=== PATIENT | male | born 1990 | race Caucasian/White ===

== ENCOUNTER → 2022-01-16 07:08 | Outpatient (CLI) | payer OTHER, SELFPAY ==
[2022-01-16 15:38] LABS: Basophils # 0.1 K/mm3 (0-0.2); Basophils % 1.1 % (0.1-2.0); Eosinophils # 0.1 K/mm3 (0.0-0.4); Eosinophils % 1.3 % (0.1-12.0); Hemoglobin 12.2 g/dL (14.1-18.0); Lymphocytes # 2.3 K/mm3 (0.7-4.5); Lymphocytes % 26.3 % (10-50); Mean Corpuscular HGB Conc 32.9 g/dL (31.8-35.4); Mean Corpuscular Hemoglobin 29.3 pg (27.0-31.2); Mean Platelet Volume 8.7 fl (7.4-10.4); Monocytes # 0.5 K/mm3 (0.1-1.0); Neutrophils # 5.6 K/mm3 (1.8-7.8); Neutrophils % 65.2 % (37.0-80.0); Platelet Count 334 K/mm3 (142-424); Red Blood Count 4.16 M/mm3 (4.60-6.20); Red Cell Distribution Width 13.3 % (11.5-17.5); White Blood Count 8.6 K/mm3 (4.8-10.8)
[2022-01-16 15:42] LABS: Alanine Aminotransferase 30 U/L (12-78); Albumin Level 4.1 g/dl (3.5-5.0); Albumin/Globulin Ratio 1.6 (1.1-1.8); Alkaline Phosphatase 114 U/L (38-126); Anion Gap 9.4 mEq/L (5-15); Aspartate Amino Transferase 22 U/L (17-59); Bilirubin,Total 1.2 mg/dl (0.2-1.3); Blood Urea Nitrogen 21 mg/dl (9-20); Calcium 9.3 mg/dl (8.4-10.2); Carbon Dioxide 30 mmol/L (22.0-30.0); Chloride 99 mmol/L (98-107); Chol/HDL Ratio 5.4 (1-3.5); Cholesterol 207 mg/dl (140-200); Estimated Glomerular Filt Rate 87 ml/min (>60); GFR (African American) 105 ML/MIN (>60); Globulin 2.5 g/dL (1.3-3.2); HDL Cholesterol 38 mg/dl (40-60); Potassium 4.4 mmoL/L (3.5-5.1); Sodium 134 mmol/L (136-145); Total Protein,Serum 6.6 g/dl (6.3-8.2); Triglycerides 276 mg/dl (30-150); VLDL Cholesterol 55 mg/dL (0-40)
[2022-01-16 15:53] LABS: Glucose 459 mg/dl (74-100)
[2022-01-16 15:59] LABS: 25-OH Vitamin D, Total 20.2 ng/mL (30-100)
[2022-01-16 16:15] LABS: Thyroid Stimulating Hormone 1.49 uIU/mL (0.465-4.68)
[2022-01-16 16:34] LABS: Vitamin B12 547 pg/mL (239-931)
[2022-01-16 19:01] LABS: Hemoglobin A1C > 14.0 % (4.0-6.0)
[2022-01-18 08:34] LABS: Direct LDL Cholesterol 122 mg/dL (100-129)
[2022-01-18 12:11] LABS: C-Peptide 2.1 ng/mL (1.1-4.4)
== END ==
PROVIDERS: PCP Physician Assistant; Visit Provider Physician Assistant
DX: E11.9 Type 2 diabetes mellitus without complications (principal); E55.9 Vitamin D deficiency, unspecified; Z79.4 Long term (current) use of insulin
CPT/HCPCS: 80053; 80061; 82043; 82306; 82607; 83036; 84443; 84681; 85025

== ENCOUNTER → 2022-08-02 23:30 | Outpatient (CLI) | payer OTHER, SELFPAY ==
[2022-08-02 19:09] LABS: Basophils # 0.1 K/mm3 (0-0.2); Basophils % 1.2 % (0.1-2.0); Eosinophils # 0.2 K/mm3 (0.0-0.4); Eosinophils % 2.2 % (0.1-12.0); Hematocrit 34.7 % (42.0-52.0); Hemoglobin 11.5 g/dL (14.1-18.0); Lymphocytes # 2.8 K/mm3 (0.7-4.5); Lymphocytes % 32.8 % (10-50); Mean Corpuscular HGB Conc 33.1 g/dL (31.8-35.4); Mean Corpuscular Volume 87.6 fl (80-94); Mean Platelet Volume 8.2 fl (7.4-10.4); Monocytes # 0.5 K/mm3 (0.1-1.0); Monocytes % 5.9 % (1.7-9.3); Neutrophils # 4.9 K/mm3 (1.8-7.8); Neutrophils % 57.9 % (37.0-80.0); Platelet Count 354 K/mm3 (142-424); Red Blood Count 3.96 M/mm3 (4.60-6.20); Red Cell Distribution Width 13.5 % (11.5-17.5); White Blood Count 8.4 K/mm3 (4.8-10.8)
[2022-08-02 19:40] LABS: Alanine Aminotransferase 38 U/L (12-78); Albumin Level 4.5 g/dl (3.5-5.0); Albumin/Globulin Ratio 1.7 (1.1-1.8); Alkaline Phosphatase 113 U/L (38-126); Anion Gap 6.3 mEq/L (5-15); Aspartate Amino Transferase 38 U/L (17-59); Bilirubin,Total 1.3 mg/dl (0.2-1.3); Blood Urea Nitrogen 24 mg/dl (9-20); Calcium 9.5 mg/dl (8.4-10.2); Carbon Dioxide 30 mmol/L (22.0-30.0); Chloride 104 mmol/L (98-107); Chol/HDL Ratio 4.4 (1-3.5); Cholesterol 166 mg/dl (140-200); Estimated Glomerular Filt Rate 78 ml/min (>60); GFR (African American) 94 ML/MIN (>60); Globulin 2.7 g/dL (1.3-3.2); Glucose 265 mg/dl (74-100); HDL Cholesterol 38 mg/dl (40-60); Potassium 4.3 mmoL/L (3.5-5.1); Sodium 136 mmol/L (136-145); Total Protein,Serum 7.2 g/dl (6.3-8.2); Triglycerides 280 mg/dl (30-150); VLDL Cholesterol 56 mg/dL (0-40)
[2022-08-02 19:51] LABS: Direct LDL Cholesterol 66.59 mg/dL (100-129)
[2022-08-02 19:58] LABS: 25-OH Vitamin D, Total 32.4 ng/mL (30-100)
[2022-08-02 20:11] LABS: Thyroid Stimulating Hormone 1.57 uIU/mL (0.465-4.68)
[2022-08-02 20:20] LABS: Hemoglobin A1C 9.7 % (4.0-6.0)
== END ==
PROVIDERS: PCP Physician Assistant; Visit Provider Physician Assistant
DX: E11.9 Type 2 diabetes mellitus without complications (principal); Z79.4 Long term (current) use of insulin; Z79.899 Other long term (current) drug therapy
CPT/HCPCS: 80053; 80061; 82306; 83036; 84443; 85025

== ENCOUNTER → 2022-08-03 10:51 | Outpatient (CLI) | payer OTHER, SELFPAY ==
[2022-08-03 13:58] LABS: Iron 82 ug/dL (49-181)
[2022-08-03 14:07] LABS: Total Iron Binding Capacity 330 ug/dL (261-462)
[2022-08-03 14:34] LABS: Ferritin 104 ng/ml (17.9-464)
== END ==
PROVIDERS: PCP Physician Assistant; Visit Provider Physician Assistant
DX: D64.9 Anemia, unspecified (principal)
CPT/HCPCS: 82728; 83540; 83550

== ENCOUNTER 2022-11-09 11:53 | Day surgery (SDC) | payer OTHER, SELFPAY ==
[2022-10-25 14:11] VITALS: BMI 27.3
[2022-11-09] VITALS (7 sets, daily range): BP systolic 116–162; BP diastolic 72–91; PULSE 103–122; RESP 16–19; TEMP 36.1–36.3; O2SAT 97–100
[2022-11-09 12:30] LABS: POC Glucose,Bedside 212 (70-110)
--- NOTE | 2022-11-09 12:50 | P.PN_ITS ---
[facility] Disclaimer: The information contained in this section may have been updated after the patient was seen, as this information can be updated by other users. Medical History Diabetes Retinopathy due to secondary diabetes mellitus Surgical History H/O colonoscopy S/P LASIK surgery of both eyes Family History Mother Diabetes Brother Diabetes Social History (Updated 11/09/22 @ 12:17 by Gretta Rossi RN) Smoking Status: Current every day smoker tobacco type: e-cigarettes alcohol intake: never substance use type: marijuana current occupational status: unemployed and disabled Travel in the last 8 weeks: None household members: none housing: house lives independently: Yes marital status: single education level: high school service: No caffeine: Yes special markell needs: No do you feel safe at home: Yes victim of physical abuse: No victim of emotional abuse: No victim of sexual abuse: No would you like helpful sources: No [facility] Anesthesia Checklist Patient Identification Patient Identification: Verbal (Name & ) Structural Data Admitted From: Home Planned Operative Procedure/s: egd Consent for Planned Operative Procedure(s) Verified: Yes Airway Assessment C-Spine Mobility Assessed: Yes TMJ Mobility Assessed: Yes Dentition: Poor Dentition Neurological Assessment Level of Consciousness: Awake, Alert and Appropriate Anesthesia Plan Anesthesia Risk discussed: Yes Anesthesia Plan: Verified ASA Class: II Anesthesia Type: MAC
--- NOTE | 2022-11-09 13:18 | HMH.SCOPE ---
Procedure: Date: 11/09/22 Patient Date of :: 1990 Procedure Performed:: EGD & biopsies Indications:: GERD, abdominal pain Performing Provider:: Tangela Sandhu MD Referring Provider:: LARS Atkins Sedation:: Propofol Procedure:: The gastroscope was gently passed through the incisoral orifice into the oral cavity and under direct visualization the esophagus was intubated. The endoscope was passed down the esophagus, through the stomach, and into the duodenum. Color, texture, mucosa, and anatomy of the esophagus, stomach, and duodenum were carefully examined with the scope. Findings:: Oropharynx: normal Esophagus: Grade B distal ulcerative esophagitis noted, biopsied, no hiatus hernia EG Junction: intact at 40 cm Cardia: normal Fundus: normal Body: normal Antrum: normal Duodenal bulb: normal Duodenum (second and third portion): normal Impression: Grade B ulcerative esophagitis Specimens:: Esophagus Recommendations:: PPI therapy and stop cannabis use Complications:: None Estimated blood obtained (mL): 0
== END 2022-11-09 14:05 | disposition home or self-care (01) ==
PROVIDERS: PCP Physician Assistant; Visit Provider Internal Medicine Gastroenterology
PROC: 0DJ08ZZ Inspection of Upper Intestinal Tract, Via Natural or Artificial Opening Endoscopic (ICD-10-PCS; CPT 43235; principal; 2022-11-09 13:00)
DX: R10.13 Epigastric pain; K20.80 Other esophagitis without bleeding; F17.290 Nicotine dependence, other tobacco product, uncomplicated; F12.90 Cannabis use, unspecified, uncomplicated; E11.9 Type 2 diabetes mellitus without complications
CPT/HCPCS: 43239; 82962

== ENCOUNTER 2022-11-15 08:30 | Outpatient (RCR) | payer OTHER, SELFPAY ==
--- NOTE | 2022-11-10 12:01 | HMH.PTOPEV ---
PT Outpatient Evaluation Rehab PT Outpatient Evaluation Start: 11/10/22 11:02 Freq: Status: Active Protocol: Document 11/10/22 11:05 DELBERT (Rec: 11/10/22 12:00 DELBERT [id number]) E-signed By Mari Castrejon, PT Outpatient Therapy Subjective History Subjective History Pt presents to the PT clinic with reports of RLE pain for about a year and low back pain for his whole life . Pt reports he has R lateral leg pain that begins after he walks for 10-15 minutes. Pt reports his low back begins to hurt when he sits in the bed too long, walks for too long or when lifting objects. Pt reports he is currently unemployed but likes to watch TV/play video games. CONCEPCIÓN: PMH: diabetes Chief Complaint Pain,Spasms,Weakness Symptom Type Ache,Throb Symptoms Relieved By OTC Meds Symptoms Aggravated By Supine,Sitting,Physical Activity,Walking,Lifting Prior Functional Limitations None Current Functional Limitations Lifting,Housework,Standing, Sitting,Squatting,Walking, Stairs,Balance Symptom Description Activity Dependent Level of pain today (0-10) 1 Pain scale - at its best (0-10) 0 Pain scale - at its worst (0-10) 9 Lumbopelvic Eval Posture Thoracic Spine Posture Standing Position Neutral Assistive device Assistive Devices None / NA Palapation tenderness bilateral lumbar spinal tenderness Yes buttock tenderness Yes Lumbar/Sacral Palpation Findings Tenderness,Muscle Guarding Accessory Movement L-spine Vertebrae Accessory Movements Central P/A [place] that [place]it Symptoms L3 bilateral L4 bilateral L5 bilateral S1 bilateral Range of Motion Lumbar Spine Active Flexion Range of 35 Motion (degrees) Lumbar Spine Active Extension Range of 10 Motion (degrees) Left Lumbar Spine Lateral Flexion Active 15 Range of Motion (degrees) Right Lumbar Spine Lateral Flexion 15 Active Range of Motion (degrees) Lumbar Spine ROM Limitations Soft Tissue Tightness,Muscle Weakness,Pain Manual Muscle Test Right Knee Extension Strength Grade 4 Good Knee Flexion Strength Grade
== END 2022-11-15 08:35 | disposition home or self-care (01) ==
LOC: PT 08:30
PROVIDERS: PCP Physician Assistant; Visit Provider Physician Assistant
DX: M54.50 Low back pain, unspecified (principal); M54.31 Sciatica, right side
CPT/HCPCS: 97110; 97163

== ENCOUNTER 2023-08-01 22:03 | Outpatient (CLI) | payer OTHER, SELFPAY ==
[2023-08-01 18:57] LABS: Amylase 110 U/L (30-110); Lipase 76 U/L (23-300)
[2023-08-01 20:29] LABS: Creatinine,Urine Random 91 mg/dL (Not Estab.)
[2023-08-03 07:51] LABS: HBsAg Screen Negative (Negative); HCV Ab Non Reactive (Non Reactive); Hep A Ab, IGM Negative (Negative); Hep B Core Ab, IgM Negative (Negative)
[2023-08-03 08:20] LABS: HIV Screen 4th Generation wRfx Non Reactive (Non Reactive)
== END 2023-08-01 23:59 ==
LOC: LAB.DROPOF 22:04
PROVIDERS: PCP Physician Assistant; Visit Provider Physician Assistant
DX: R10.13 Epigastric pain (principal); R11.2 Nausea with vomiting, unspecified
CPT/HCPCS: 80074; 82043; 82150; 82570; 83690; 86703; G0432